=== PATIENT | female | born 1950 | race Two or more races ===

== ENCOUNTER → 2019-02-24 | Outpatient (CLI) | payer MEDICARE ==
[~2019-02-24] MED LIST: AMLO-150 PO; HYDR-3240 PO; METO25TA35 PO; OMEP-110 PO; SIMV20TA3 PO; [UNRECOGNIZED DRUG - REMARK] PO
== END | disposition home or self-care (01) ==
LOC: CFH 11:31
PROVIDERS: ATTEND Family Medicine
DX: N64.4 Mastodynia (principal)
CPT/HCPCS: 76641; 77066; G0279

== ENCOUNTER 2020-02-21 08:19 | Observation (INO) | payer MEDICARE ==
[~2020-02-21] VITALS: Ht 162.6 cm; Wt 66.0 kg
[~2020-02-21 08:19] MED LIST changes: +SIMV20TA19 PO; -SIMV20TA3 PO
--- NOTE | 2020-02-21 08:29 | NUR ---
emanuel. report received from [facility]. pt c/o abd pain radiating to back with n/v since 4 am. denies any other sx. pt's aox4. resps even and unlabored. 4mg zofran/75mcg fentanyl/200ml ns given well logging captain. bp/spo2 monitors in place. call light within reach. edmd at bedside to evaluate at this time.
[2020-02-21] MEDS ORDERED: HYDROmorphone 2 MG/ML, 1ML IVPush PRN (08:30)
[2020-02-21] MEDS ORDERED: SODIUM CHLORIDE FLUSH 10ML SYR IVF ONE (08:30)
[2020-02-21] MEDS ORDERED: SODIUM CHLORIDE 0.9% 1,000ML IVBOLUS ONE (08:30)
[2020-02-21] MEDS ORDERED: HYDROmorphone 1 MG/ML, 1ML INJ ONE (08:35)
--- NOTE | 2020-02-21 08:41 | NUR ---
pt medicated per emar. pt tolerated well.
--- NOTE | 2020-02-21 08:45 | NUR ---
lab at bedside at this time. pt aware of ua. urine cup at bedside.
--- NOTE | 2020-02-21 08:56 | NUR ---
pt amb to br with one home care assistant. urine cup given.
[2020-02-21 09:09] LABS: MEAN CORPUSCULAR HEMOGLOBIN 31.1 pg (27.0-34.8); MEAN CORPUSCULAR HGB CONC 33.1 g/dL (32.4-35.8); MEAN CORPUSCULAR VOLUME 93.9 fL (80-100); MEAN PLATELET VOLUME 9.9 fL (7.4-10.4); PLATELET COUNT 180 x10^3/uL (130-400); RED BLOOD COUNT 4.85 x10^6/uL (3.82-5.3); RED CELL DISTRIBUTION WIDTH 14.4 % (9.6-15.2)
[2020-02-21 09:14] LABS: ALANINE AMINOTRANSFERASE 22 U/L (12-78); ALBUMIN 3.6 g/dL (3.4-5.0); ANION GAP 6 mmol/L (5-15); CALCIUM 8.6 mg/dL (8.5-10.1); CHLORIDE 112 mmol/L (98-107); CREATININE 0.78 mg/dL (0.55-1.02)
[2020-02-21 09:16] LABS: ALKALINE PHOSPHATASE 132 U/L (45-117); BILIRUBIN,TOTAL 0.4 mg/dL (0.2-1.0); TOTAL PROTEIN 7.2 g/dL (6.4-8.2)
[2020-02-21 09:24] LABS: MICROSCOPIC NOT IND
--- NOTE | 2020-02-21 09:27 | NUR ---
pt to ct at this time.
[2020-02-21 09:33] LABS: MD YES
[2020-02-21 09:34] LABS: BAND#(MANUAL) 0.56 x10^3/uL; BANDS%(MANUAL) 3 % (0-7); LYMPH#(MANUAL) 0.38 x10^3/uL (1-3.4); LYMPHS% (MANUAL) 2 % (22-44); MONOS#(MANUAL) 0.94 x10^3/uL (0.3-2.7); MONOS% (MANUAL) 5 % (2-9); SEG#(MANUAL) 16.92 x10^3/uL (1.8-6.8); SEGS% (MANUAL) 90 % (42-75)
[2020-02-21 09:35] LABS: <PLATELET ESTIMATE> ADEQUATE; <PLT MORPHOLOGY> NORMAL PLT MORPH; <RBC MORPHOLOGY> NORMAL
[2020-02-21] MEDS ORDERED: OMNIPAQUE 350 MG/ML, 100ML BOTTLE ONE (10:01)
--- NOTE | 2020-02-21 10:09 | NUR ---
TASK RN NOTE: PT ASLEEP, SITTING RECLINED IN BED. NAD NOTED AT THIS TIME. SIDE RAILS UP, CALL LIGHT IN REACH.
--- NOTE | 2020-02-21 10:47 | NUR ---
PT SLEEIPNG IN [facility]. NAD NOTED AT THIS TIME. RAILS UP X 2. CALL LIGHT WITHIN REACH. ALL MONITORS IN PLACE. RESPS EVEN AND UNLABORED.
--- NOTE | 2020-02-21 11:22 | NUR ---
pt amb to br with one library media assistant.
--- NOTE | 2020-02-21 11:46 | NUR ---
REPORT GIVEN TO EDGAR RAMIREZ. ALL QUESTIONS ANSWERED.
[2020-02-21 12:15] LABS: TROPONIN I < 0.015 ng/mL (0.000-0.045)
--- NOTE | 2020-02-21 12:38 | NUR ---
PT STILL RESTING IN [facility]. PT'S AOX4. RESPS EVEN AND UNLABORED. ALL MONITORS IN PLACE. CALL LIGHT WITHIN REACH.
--- NOTE | 2020-02-21 13:01 | NUR ---
hospitalist at bedside.
[2020-02-21 13:21] VITALS: BP 125/70
[2020-02-21] MEDS ORDERED: ENALAPRILAT 1.25 MG/ML, 2ML IVPush PRN (13:30)
[2020-02-21] MEDS ORDERED: ONDANSETRON ODT 4 MG PO PRN (13:30)
[2020-02-21] MEDS ORDERED: ENOXAPARIN 40 MG/0.4 ML SQ SCH (13:30)
[2020-02-21] MEDS ORDERED: BISACODYL 10 MG SUPP PR PRN (13:30)
[2020-02-21] MEDS ORDERED: hydrALAzine 20 MG/ML, 1ML IVPush PRN (13:30)
[2020-02-21] MEDS ORDERED: MAALOX/HYOSCYAMINE/LIDOCAINE 45 ML BTL PO PRN (13:30)
[2020-02-21] MEDS ORDERED: ONDANSETRON 2MG/ML, 2ML IVPush PRN (13:30)
[2020-02-21] MEDS ORDERED: ACETAMINOPHEN 325 MG TABLET PO PRN (13:30)
[2020-02-21] MEDS ORDERED: POLYETHYLENE GLYCOL 17 GM PACKET PO PRN (13:30)
[2020-02-21 13:43] VITALS: BP 125/70
[2020-02-21] MEDS ORDERED: MELO7.5T31 PO (13:56)
[2020-02-21] MEDS: KETOROLAC 30 MG/1 ML IV PRN ×2 (14:06→20:15)
[2020-02-21] MEDS: LACTATED RINGERS 1,000 ML IV SCH ×2 (14:07→21:22)
[2020-02-21] MEDS: METOPROLOL TARTRATE 25 MG TAB PO SCH (20:16)
[2020-02-21 20:23] VITALS: BP 126/68
[2020-02-21] MEDS ORDERED: SIMVASTATIN 20 MG TABLET PO SCH (21:00)
[2020-02-22] MEDS: KETOROLAC 30 MG/1 ML IV PRN (03:14)
[2020-02-22 03:24] VITALS: BP 136/68
[2020-02-22 06:00] LABS: BASOPHILS # (AUTO) 0.02 x10^3/uL (0-0.1); BASOPHILS % (AUTO) 0 % (0-1); EOSINOPHILS # (AUTO) 0.05 x10^3/uL (0-0.4); EOSINOPHILS % (AUTO) 1 % (1-7); LYMPHOCYTES # (AUTO) 1.54 x10^3/uL (1-3.4); LYMPHOCYTES % (AUTO) 25 % (22-44); MD NO; MEAN CORPUSCULAR HEMOGLOBIN 31.1 pg (27.0-34.8); MEAN CORPUSCULAR HGB CONC 33.4 g/dL (32.4-35.8); MEAN CORPUSCULAR VOLUME 93.2 fL (80-100); MEAN PLATELET VOLUME 9.6 fL (7.4-10.4); MONOCYTES # (AUTO) 0.48 x10^3/uL (0.2-0.8); MONOCYTES % (AUTO) 8 % (2-9); NEUTROPHILS # (AUTO) 4.01 x10^3/uL (1.8-6.8); NEUTROPHILS % (AUTO) 66 % (42-75); PLATELET COUNT 188 x10^3/uL (130-400); RED BLOOD COUNT 4.21 x10^6/uL (3.82-5.3); RED CELL DISTRIBUTION WIDTH 14.3 % (9.6-15.2)
[2020-02-22] MEDS: LACTATED RINGERS 1,000 ML IV SCH (06:14)
[2020-02-22 06:17] LABS: ALBUMIN 3.1 g/dL (3.4-5.0); ANION GAP 6 mmol/L (5-15); CALCIUM 8.5 mg/dL (8.5-10.1); CHLORIDE 110 mmol/L (98-107)
[2020-02-22 06:22] LABS: ALANINE AMINOTRANSFERASE 18 U/L (12-78); ALKALINE PHOSPHATASE 109 U/L (45-117); BILIRUBIN,TOTAL 0.5 mg/dL (0.2-1.0); TOTAL PROTEIN 6.2 g/dL (6.4-8.2)
[2020-02-22 08:23] VITALS: BP 155/74
[2020-02-22] MEDS ORDERED: SENNA/DOCUSATE TABLET PO SCH (09:00)
[2020-02-22] MEDS ORDERED: OMEPRAZOLE 20 MG CAPSULE.DR PO SCH (09:00)
[2020-02-22] MEDS ORDERED: AMLODIPINE 5 MG TABLET PO SCH (09:00)
[2020-02-22] MEDS ORDERED: MELOXICAM 15 MG TABLET PO SCH (09:16)
[2020-02-22] MEDS: METOPROLOL TARTRATE 25 MG TAB PO SCH (09:50)
== END 2020-02-22 11:58 | disposition home or self-care (01) ==
LOC: ED 09:12 → EDIP 11:19 → INTOOBSV 11:19 → 3N 11:44
PROVIDERS: ADMIT Family Medicine; ATTEND Family Medicine
DX: R10.13 Epigastric pain (principal); K21.9 Gastro-esophageal reflux disease without esophagitis; E87.2 Acidosis; D72.829 Elevated white blood cell count, unspecified; I10 Essential (primary) hypertension; N90.7 Vulvar cyst; G89.29 Other chronic pain; R74.8 Abnormal levels of other serum enzymes; R11.2 Nausea with vomiting, unspecified; Z66 Do not resuscitate; F17.200 Nicotine dependence, unspecified, uncomplicated; D17.9 Benign lipomatous neoplasm, unspecified; Z90.49 Acquired absence of other specified parts of digestive tract; Z90.710 Acquired absence of both cervix and uterus
CPT/HCPCS: 36415; 71045; 74177; 80053; 81003; 83605; 83690; 84145; 84484; 85025; 87040; 93005; 96361; 96372; 96374; 96375; 96376; 99285; G0378; J1170; J1650; J1885; J2405; J7030; J7120; Q9967

== ENCOUNTER 2020-07-03 16:04 | Emergency (ER) | payer MEDICARE ==
[~2020-07-03] VITALS: Ht 162.6 cm; Wt 66.0 kg
[~2020-07-03 16:04] MED LIST changes: +MELO7.5T31 PO
--- NOTE | 2020-07-03 16:29 | NUR ---
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
[2020-07-03] MEDS ORDERED: SODIUM CHLORIDE FLUSH 10ML SYR IVF ONE (16:30)
--- NOTE | 2020-07-03 16:45 | NUR ---
PT CAME IN CO OF ABD PAIN WITH BILAT FLANK PAIN. STARTED ON FRIDAY. PT UNABLE TO PROVIDE UA AT THIS TIME. IV STARTED. LABS DRAWN. PT CONNECTED TO MONITORING EQUIPMENT.
--- NOTE | 2020-07-03 16:51 | NUR ---
PT RESITNG IN [facility]. AWAITING CT.
[2020-07-03 17:00] LABS: BASOPHILS % (AUTO) 1 % (0-1); EOSINOPHILS % (AUTO) 1 % (1-7); LYMPHOCYTES % (AUTO) 17 % (22-44); MEAN CORPUSCULAR HEMOGLOBIN 30.7 pg (27.0-34.8); MEAN PLATELET VOLUME 9.4 fL (7.4-10.4); MONOCYTES % (AUTO) 9 % (2-9); NEUTROPHILS % (AUTO) 73 % (42-75); PLATELET COUNT 273 x10^3/uL (130-400); RED BLOOD COUNT 5.07 x10^6/uL (3.82-5.3)
[2020-07-03] MEDS ORDERED: ONDANSETRON 2MG/ML, 2ML IVPush ONE (17:00)
[2020-07-03] MEDS ORDERED: FAMOTIDINE 20 MG/2 ML IVPush ONE (17:00)
[2020-07-03] MEDS ORDERED: MAALOX/HYOSCYAMINE/LIDOCAINE 45 ML BTL PO ONE (17:00)
[2020-07-03 17:04] LABS: ALANINE AMINOTRANSFERASE 29 U/L (12-78); ALBUMIN 4.1 g/dL (3.4-5.0); ANION GAP 12 mmol/L (5-15); CALCIUM 9.6 mg/dL (8.5-10.1); CHLORIDE 105 mmol/L (98-107); CREATININE 1.45 mg/dL (0.55-1.02)
[2020-07-03] MEDS ORDERED: FAMOTIDINE 20 MG/2 ML ONE (17:06)
[2020-07-03] MEDS ORDERED: ONDANSETRON 2MG/ML, 2ML ONE (17:06)
[2020-07-03] MEDS ORDERED: MAALOX/HYOSCYAMINE/LIDOCAINE 45 ML BTL ONE (17:06)
[2020-07-03 17:08] LABS: ALKALINE PHOSPHATASE 123 U/L (45-117); BILIRUBIN,TOTAL 0.6 mg/dL (0.2-1.0); TOTAL PROTEIN 8.3 g/dL (6.4-8.2); TROPONIN I < 0.015 ng/mL (0.000-0.045)
[2020-07-03 17:10] LABS: MD NO
--- NOTE | 2020-07-03 17:11 | NUR ---
PT MEDICATED PER MAR
[2020-07-03] MEDS ORDERED: OMNIPAQUE 350 MG/ML, 100ML BOTTLE ONE (17:37)
--- NOTE | 2020-07-03 18:33 | NUR ---
BREAK RN: PT AMBULATORY TO BATHROOM TO ATTEMPT UA.
[2020-07-03 18:47] VITALS: BP 132/77
[2020-07-03 19:38] LABS: MICROSCOPIC INDICATED
== END 2020-07-03 20:08 | disposition home or self-care (01) ==
LOC: ED 18:14
DX: K29.00 Acute gastritis without bleeding (principal); R00.0 Tachycardia, unspecified
CPT/HCPCS: 36415; 71045; 74177; 80053; 81001; 83690; 84484; 85025; 93005; 96374; 96375; 99285; J2405; J3490; Q9967